=== PATIENT | female | born 1985 | race Caucasian/White ===

== ENCOUNTER 2017-12-05 17:30 | Emergency (ER) | payer OTHER ==
[~2017-12-05] VITALS: Ht 175.3 cm; Wt 74.4 kg
[~2017-12-05 17:30] MED LIST: IBUP-1223 PO; OXYC-302 PO
[2017-12-05 20:43] VITALS: BP 120/72
[2017-12-05 21:02] VITALS: BP 131/76
[2017-12-05 21:18] VITALS: BP 131/76
== END 2017-12-05 21:20 | disposition home or self-care (01) ==
LOC: ED 19:55
DX: O20.0 Threatened abortion (principal); Z3A.01 Less than 8 weeks gestation of pregnancy; Z88.0 Allergy status to penicillin
CPT/HCPCS: 36415; 36430; 76856; 84702; 86850; 86900; 99285; J2790

== ENCOUNTER 2018-08-08 21:41 | Inpatient (IN) | payer OTHER ==
[~2018-08-08] VITALS: Ht 175.3 cm; Wt 89.0 kg
[2018-08-08] MEDS ORDERED: D5%-LACTATED RINGERS 1,000 ML IV SCH (22:10)
[2018-08-08] MEDS ORDERED: OXYTOCIN 30U/ 0.9% NaCL 500ML 500 ML IV PRN (22:10)
[2018-08-08] MEDS ORDERED: OXYTOCIN 30U/ 0.9% NaCL 500ML 500 ML IV ONE (22:10)
[2018-08-08] MEDS ORDERED: LACTATED RINGERS 1,000 ML IV SCH ×2 (22:10→22:51)
[2018-08-08] MEDS ORDERED: METOCLOPRAMIDE 5 MG/ML, 2ML IVPush PRN (22:30)
[2018-08-08] MEDS ORDERED: CALCIUM CARBONATE 500 MG TAB.CHEW PO PRN (22:30)
[2018-08-08] MEDS ORDERED: SODIUM CITRATE/CITRIC ACID 30 ML UDC PO PRN (22:30)
[2018-08-08] MEDS ORDERED: PLEASE ENTER HEIGHT AND WEIGHT MC SCH (22:30)
[2018-08-08] MEDS ORDERED: FENTANYL PF 100 MCG/2ML IV PRN (22:30)
[2018-08-08] MEDS ORDERED: FENTANYL PF 100 MCG/2ML IVPush PRN (22:30)
[2018-08-08] MEDS ORDERED: TERBUTALINE 1 MG/ML, 1ML IVPush PRN (22:30)
[2018-08-08 22:31] LABS: BASOPHILS # (AUTO) 0.05 x10^3/uL (0-0.1); BASOPHILS % (AUTO) 1 % (0-1); EOSINOPHILS # (AUTO) 0.01 x10^3/uL (0-0.4); EOSINOPHILS % (AUTO) 0 % (1-7); LYMPHOCYTES # (AUTO) 1.98 x10^3/uL (1-3.4); LYMPHOCYTES % (AUTO) 18 % (22-44); MD SCAN; MEAN CORPUSCULAR HEMOGLOBIN 30.2 pg (27.0-34.8); MEAN CORPUSCULAR VOLUME 91.6 fL (80-100); MEAN PLATELET VOLUME 11.1 fL (7.4-10.4); MONOCYTES # (AUTO) 0.56 x10^3/uL (0.2-0.8); MONOCYTES % (AUTO) 5 % (2-9); NEUTROPHILS # (AUTO) 8.38 x10^3/uL (1.8-6.8); NEUTROPHILS % (AUTO) 76 % (42-75); PLATELET COUNT 99 x10^3/uL (130-400); RED BLOOD COUNT 4.56 x10^6/uL (3.82-5.3); RED CELL DISTRIBUTION WIDTH 13.2 % (9.6-15.2)
[2018-08-08] MEDS ORDERED: OXYTOCIN 30U/ 0.9% NaCL 500ML 500 ML ONE (22:41)
[2018-08-08] MEDS ORDERED: LIDOCAINE 1%, 50ML ONE (22:42)
[2018-08-08] MEDS ORDERED: MISOPROSTOL 200 MCG TABLET ONE (22:43)
[2018-08-08] MEDS ORDERED: NEWBORN KIT ONE (22:43)
[2018-08-08] MEDS ORDERED: FENTANYL/BUPIV./NS/PF 250 ML EPIDCONT SCH (22:51)
[2018-08-08] MEDS ORDERED: LACTATED RINGERS 1,000 ML IVBOLUS PRN (23:00)
[2018-08-08] MEDS ORDERED: FENTANYL PF 500 MCG, BUPIVACAINE/PF 0.5%, 30ML 62.5 ML in SODIUM CHLORIDE 0.9% 177.5 ML EPIDCONT SCH (23:30)
[2018-08-08] MEDS: OXYTOCIN 30U/ 0.9% NaCL 500ML 500 ML IV SCH (23:55)
[2018-08-09] MEDS ORDERED: MISOPROSTOL 200 MCG TABLET PO PRN
[2018-08-09] MEDS ORDERED: ONDANSETRON 2MG/ML, 2ML IV PRN
[2018-08-09] MEDS ORDERED: OXYcodone/APAP 5/325MG TABLET PO PRN ×2
[2018-08-09] MEDS ORDERED: OXYTOCIN 30U/ 0.9% NaCL 500ML 500 ML ONE (01:49)
[2018-08-09] MEDS: IBUPROFEN 600 MG TABLET PO PRN ×3 (02:16→16:48)
[2018-08-09 05:20] VITALS: BP 105/65
[2018-08-09 07:25] VITALS: BP 118/69
[2018-08-09 07:57] LABS: MEAN CORPUSCULAR HEMOGLOBIN 30.9 pg (27.0-34.8); MEAN CORPUSCULAR HGB CONC 34.2 g/dL (32.4-35.8); MEAN CORPUSCULAR VOLUME 90.5 fL (80-100); MEAN PLATELET VOLUME 10.5 fL (7.4-10.4); PLATELET COUNT 82 x10^3/uL (130-400); RED BLOOD COUNT 4.33 x10^6/uL (3.82-5.3); RED CELL DISTRIBUTION WIDTH 12.9 % (9.6-15.2)
[2018-08-09] MEDS: PRENATAL VIT/IRON/FA 1 EACH TABLET PO SCH (08:15)
[2018-08-09] MEDS: DOCUSATE 100 MG CAPSULE PO PRN (08:15)
[2018-08-09 08:34] LABS: BASOPHILS # (AUTO) 0.09 x10^3/uL (0-0.1); BASOPHILS % (AUTO) 1 % (0-1); EOSINOPHILS % (AUTO) 0 % (1-7); LYMPHOCYTES # (AUTO) 1.44 x10^3/uL (1-3.4); LYMPHOCYTES % (AUTO) 11 % (22-44); MD SCAN; MONOCYTES # (AUTO) 0.44 x10^3/uL (0.2-0.8); MONOCYTES % (AUTO) 3 % (2-9); NEUTROPHILS # (AUTO) 10.85 x10^3/uL (1.8-6.8); NEUTROPHILS % (AUTO) 85 % (42-75)
[2018-08-09] MEDS: OXYTOCIN 30U/ 0.9% NaCL 500ML 500 ML IV SCH ×2 (09:55→19:55)
[2018-08-09 12:50] VITALS: BP 111/72
[2018-08-09 17:25] VITALS: BP 112/80
[2018-08-09 19:50] VITALS: BP 106/69
[2018-08-09] MEDS ORDERED: RHOGAM FROM BLOOD BANK 1 NOTE EA IM/IV ONE (22:30)
[2018-08-10] MEDS: IBUPROFEN 600 MG TABLET PO PRN (01:41)
[2018-08-10] MEDS: DOCUSATE 100 MG CAPSULE PO PRN ×2 (01:41→10:25)
[2018-08-10] MEDS ORDERED: PREN-3 PO (03:35)
[2018-08-10] MEDS ORDERED: IBUP-1222 PO (03:35)
[2018-08-10] MEDS: OXYTOCIN 30U/ 0.9% NaCL 500ML 500 ML IV SCH (05:55)
[2018-08-10 06:55] VITALS: BP 104/68
[2018-08-10] MEDS: PRENATAL VIT/IRON/FA 1 EACH TABLET PO SCH (09:00)
== END 2018-08-10 11:33 | disposition home or self-care (01) | DRG 775 ==
LOC: LDOP 21:41 → LDIP 22:08 → UNDOADMIN 22:08 → LDIP 22:14 → 2NW 08-09 01:45
PROVIDERS: ADMIT Obstetrics & Gynecology; ATTEND Obstetrics & Gynecology
PROC: 10E0XZZ Delivery of Products of Conception, External Approach (ICD-10-PCS; principal; 2018-08-08)
PROC: 0KQM0ZZ Repair Perineum Muscle, Open Approach (ICD-10-PCS; 2018-08-08)
PROC: 30233S1 Transfusion of Nonautologous Globulin into Peripheral Vein, Percutaneous Approach (ICD-10-PCS; 2018-08-09)
DX: O62.3 Precipitate labor (principal); Z37.0 Single live birth; O70.1 Second degree perineal laceration during delivery; Z3A.39 39 weeks gestation of pregnancy
CPT/HCPCS: 36415; J2790; 85025; 85461; 86850; 86900; G0378; J3010; J3490; J7050